=== PATIENT | male | born 1965 | race Two or more races ===

== ENCOUNTER 2019-08-04 20:08 | Emergency (ER) | payer OTHER ==
[~2019-08-04] VITALS: Ht 175.3 cm; Wt 91.7 kg
[2019-08-04 20:10] VITALS: BP 150/88
--- NOTE | 2019-08-04 20:20 | NUR ---
FIRST CONTACT WITH PT. PT HERE STATING THAT WAS IN THE RESTROOM AND SLIPPED ON WET FLOOR AND HIT BACK OF HEAD, BELIEVES HAD A POSITIVE LOC. OCCURRED 185, CURRENTLY AA AND O TIMES 4, GCS 15. PT AMBULATE WITH STEADY GAIT, SPEECH CLEAR NEURO EXAM WNL. RESPS EVEN AND UNLABORED.
[2019-08-04] MEDS ORDERED: ACETAMINOPHEN 500 MG TABLET ONE (20:23)
--- NOTE | 2019-08-04 20:25 | NUR ---
PT MEDICATED PER EMAR. PT TOLERATED WELL.
[2019-08-04] MEDS ORDERED: ACETAMINOPHEN 500 MG TABLET PO ONE (20:30)
[2019-08-04] MEDS ORDERED: DIPH,PERTUSS(ACELL),TET VAC/PF 0.5 ML IM-VACC ONE ×2 (20:44→21:00)
--- NOTE | 2019-08-04 21:07 | NUR ---
Patient given discharge instructions and they have confirmed that they understand the instructions. Patient ambulatory with steady gait.
== END 2019-08-04 21:08 | disposition home or self-care (01) ==
LOC: ED 21:00
DX: S00.01XA Abrasion of scalp, initial encounter (principal); S06.9X1A Unspecified intracranial injury with loss of consciousness of 30 minutes or less, initial encounter; F17.210 Nicotine dependence, cigarettes, uncomplicated; W01.0XXA Fall on same level from slipping, tripping and stumbling without subsequent striking against object, initial encounter; Y93.01 Activity, walking, marching and hiking; Y92.009 Unspecified place in unspecified non-institutional (private) residence as the place of occurrence of the external cause; Y99.8 Other external cause status
CPT/HCPCS: 70450; 72125; 90471; 90715